=== PATIENT | male | born 1940 | race Caucasian/White ===

== ENCOUNTER 2021-07-18 14:40 | Inpatient (IN) | payer MEDICARE ==
[~2021-07-18] VITALS: Ht 165.1 cm; Wt 111.1 kg
[2021-07-18 17:38] LABS: BASOPHILS % 0.6 % (0.0-2.0); EOSINOPHILS % 5.1 % (0.0-5.0); HEMATOCRIT. 36.8 % (42.0-52.0); HEMOGLOBIN. 12.1 g/dL (14.0-18.0); LYMPHOCYTES % 21.6 % (20.0-50.0); MEAN CORPUSCULAR HEMOGLOBIN 30.4 pg (28.0-32.0); MEAN CORPUSCULAR VOLUME 92.1 fL (80.0-94.0); MONOCYTES % 9.4 % (2.0-8.0); NEUTROPHILS % 63.3 % (40.0-76.0); PLATELET 145 x1000/uL (130-400); RED BLOOD CELL COUNT 3.99 mill/uL (4.7-6.1); RED CELL DISTRIBUTION WIDTH 12.9 % (11.6-14.6)
[2021-07-18 17:43] LABS: CHLORIDE 106 mEq/L (98-107)
[2021-07-19 03:00] VITALS: BP 119/44
[2021-07-19] MEDS ORDERED: DEXTROSE 50% WATER 50ML SYRINGE IV PRN (05:15)
[2021-07-19] MEDS: BLOOD SUGAR DIAGNOSTIC STRIP TEST SCH ×4 (07:20→21:12)
[2021-07-19] MEDS: INSULIN LISPRO 100 UNITS/ML SUBCUT SCH ×4 (07:50→21:12)
[2021-07-19 08:00] VITALS: BP 130/60
[2021-07-19] MEDS: ASPIRIN 81MG TABLET PO SCH (08:45)
[2021-07-19] MEDS: PANTOPRAZOLE 40MG DR TABLET PO SCH (08:46)
[2021-07-19 10:01] LABS: HEMATOCRIT 37.9 % (42.0-52.0); HEMOGLOBIN 12.3 g/dL (14.0-18.0); MEAN CORPUSCULAR VOLUME 92.1 fL (80.0-94.0); PLATELET 157 x1000/uL (130-400); RED BLOOD CELL COUNT 4.11 mill/uL (4.7-6.1); RED CELL DISTRIBUTION WIDTH 13.2 % (11.6-14.6)
[2021-07-19 10:17] LABS: CHLORIDE 103 mEq/L (98-107)
[2021-07-19 10:27] LABS: HDL CHOLESTEROL 57 mg/dL (40-59); LDL CHOLESTEROL 65 mg/dL (5-100)
[2021-07-19 12:00] VITALS: BP 136/78
[2021-07-19] MEDS ORDERED: LIDOCAINE HCL/PF 1% 2ML VIAL ONE (12:21)
[2021-07-19] MEDS ORDERED: CEFTRIAXONE 1 G PREMIX 50 ML IV SCH (12:30)
[2021-07-19] MEDS ORDERED: METHYLPREDNISOLONE SOD SUCC 125 MG/2 ML VIAL IV NR (12:45)
[2021-07-19] MEDS ORDERED: GABA300S PO (12:53)
[2021-07-19 12:56] LABS: BG BASE EXCESS 4.6 mmol/L (-2.0-2.0); BG DEOXYHEMOGLOBIN 9.6 % (0.0-5.0); BG FRACTION INSPIRED OXYGEN 21; BG HCO3 ACT 31.6 mmol/L (22.0-26.0); BG METHEMOGLOBIN 0.3 % (0.0-1.5); BG OXYGEN SATURATION 90.3 % (92.0-98.5); BG OXYHEMOGLOBIN 89.1 % (94.0-97.0); BG PH 7.354 (7.350-7.450); BG PO2 55.7 mmHg (75.0-100.0); BG SAMPLE SITE RIGHT RADIAL; BG TOTAL HEMOGLOBIN 12.8 g/dL (12.0-18.0); BG VENT MODE ROOM AIR
[2021-07-19] MEDS ORDERED: ALFU10TA9 PO (12:56)
[2021-07-19] MEDS ORDERED: SIMV10TA97 PO (12:57)
[2021-07-19] MEDS ORDERED: GLIP10TA10 PO (12:58)
[2021-07-19] MEDS ORDERED: BENA10TA74 PO (12:58)
[2021-07-19] MEDS ORDERED: METF-414 PO (12:59)
[2021-07-19] MEDS ORDERED: LEVO125T8 PO (13:00)
[2021-07-19] MEDS: CEFTRIAXONE 1,000 MG in DEXTROSE 5% WATER 50 ML IV SCH (14:40)
[2021-07-19] MEDS: FUROSEMIDE 40MG/4ML VIAL IVP SCH (15:21)
[2021-07-19] MEDS: AZITHROMYCIN 500 MG in DEXT 5% WATER 250 ML IV SCH (15:21)
[2021-07-19 16:00] VITALS: BP 129/65
[2021-07-19] MEDS: METFORMIN HCL 500MG TABLET PO SCH (17:15)
[2021-07-19] MEDS: BENAZEPRIL 10MG TABLET PO SCH (17:17)
[2021-07-19] MEDS: GLIPIZIDE 10MG TABLET PO SCH (17:20)
[2021-07-19 20:00] VITALS: BP 138/57
[2021-07-19] MEDS ORDERED: ATORVASTATIN CALCIUM 20MG TABLET PO SCH (21:00)
[2021-07-19] MEDS: ATORVASTATIN CALCIUM 20MG TABLET PO SCH (21:12)
[2021-07-19] MEDS: METHYLPREDNISOLONE SOD SUCC 40 MG/ML VIAL IV SCH (21:17)
[2021-07-19] MEDS ORDERED: ONDANSETRON HCL 4MG/2ML INJ IV PRN (22:30)
[2021-07-19] MEDS: GUAIFENESIN/CODEINE 200-20MG/10ML UDC PO PRN (23:57)
[2021-07-20] VITALS (7 sets, daily range): BP systolic 99–133; BP diastolic 43–65
[2021-07-20] MEDS: IPRATROPIUM/ALBUTEROL 0.5-3(2.5)MG/3ML NEB HHN SCH ×6 (00:16→20:20)
[2021-07-20] MEDS: LEVOTHYROXINE SODIUM 125MCG TABLET PO SCH (06:27)
[2021-07-20] MEDS: METHYLPREDNISOLONE SOD SUCC 40 MG/ML VIAL IV SCH ×2 (06:27→14:42)
[2021-07-20] MEDS: GLIPIZIDE 10MG TABLET PO SCH ×2 (06:27→17:56)
[2021-07-20 06:33] LABS: HEMATOCRIT. 36.8 % (42.0-52.0); HEMOGLOBIN. 12.3 g/dL (14.0-18.0); LYMPHOCYTES % 8.1 % (20.0-50.0); MEAN CORPUSCULAR HEMOGLOBIN 30.7 pg (28.0-32.0); MEAN CORPUSCULAR VOLUME 91.8 fL (80.0-94.0); MEAN PLATELET VOLUME 8.8 fl (7.4-10.4); MONOCYTES % 2.1 % (2.0-8.0); NEUTROPHILS % 89.8 % (40.0-76.0); PLATELET 161 x1000/uL (130-400); RED BLOOD CELL COUNT 4.01 mill/uL (4.7-6.1); RED CELL DISTRIBUTION WIDTH 12.7 % (11.6-14.6)
[2021-07-20] MEDS: BLOOD SUGAR DIAGNOSTIC STRIP TEST SCH ×4 (06:38→21:05)
[2021-07-20] MEDS: INSULIN LISPRO 100 UNITS/ML SUBCUT SCH ×4 (07:06→21:06)
[2021-07-20] MEDS: FUROSEMIDE 40MG/4ML VIAL IVP SCH (10:59)
[2021-07-20] MEDS: BENAZEPRIL 10MG TABLET PO SCH (11:00)
[2021-07-20] MEDS: PANTOPRAZOLE 40MG DR TABLET PO SCH (11:00)
[2021-07-20] MEDS: GABAPENTIN 300MG CAPSULE PO SCH (11:00)
[2021-07-20] MEDS: ASPIRIN 81MG TABLET PO SCH (11:01)
[2021-07-20] MEDS: AZITHROMYCIN 500 MG in DEXT 5% WATER 250 ML IV SCH (11:01)
[2021-07-20] MEDS: METFORMIN HCL 500MG TABLET PO SCH ×2 (11:01→17:56)
[2021-07-20] MEDS: CEFTRIAXONE 1,000 MG in DEXTROSE 5% WATER 50 ML IV SCH (14:43)
[2021-07-20] MEDS ORDERED: FLUT1BLS INH (15:28)
[2021-07-20] MEDS ORDERED: FURO-151 MT (15:28)
[2021-07-20] MEDS ORDERED: AZIT250T12 MT (15:28)
[2021-07-20] MEDS ORDERED: MED4 MT (15:28)
[2021-07-20] MEDS ORDERED: ALBU6.7H9 INH (15:28)
[2021-07-20] MEDS ORDERED: INSULIN LISPRO 100 UNITS/ML SUBCUT NR (18:45)
[2021-07-20] MEDS ORDERED: DEXTROSE 50% WATER 50ML SYRINGE IV PRN (19:00)
[2021-07-20 20:13] LABS: BG BASE EXCESS -0.3 mmol/L (-2.0-2.0); BG DEOXYHEMOGLOBIN 13.7 % (0.0-5.0); BG FRACTION INSPIRED OXYGEN 21; BG HCO3 ACT 27.8 mmol/L (22.0-26.0); BG OXYGEN SATURATION 86.2 % (92.0-98.5); BG OXYHEMOGLOBIN 85.3 % (94.0-97.0); BG PO2 51.2 mmHg (75.0-100.0); BG SAMPLE SITE RIGHT RADIAL; BG TOTAL HEMOGLOBIN 12.6 g/dL (12.0-18.0); BG VENT MODE ROOM AIR
[2021-07-20] MEDS: ATORVASTATIN CALCIUM 20MG TABLET PO SCH (21:06)
[2021-07-20] MEDS: INSULIN GLARGINE 100 UNITS/ML SUBCUT SCH (21:07)
[2021-07-21] MEDS: IPRATROPIUM/ALBUTEROL 0.5-3(2.5)MG/3ML NEB HHN SCH ×7 (00:51→21:04)
[2021-07-21 04:00] VITALS: BP 96/43
[2021-07-21] MEDS: BLOOD SUGAR DIAGNOSTIC STRIP TEST SCH ×4 (06:21→21:04)
[2021-07-21] MEDS: PANTOPRAZOLE 40MG DR TABLET PO SCH (06:23)
[2021-07-21] MEDS: GLIPIZIDE 10MG TABLET PO SCH ×2 (06:23→17:01)
[2021-07-21] MEDS: LEVOTHYROXINE SODIUM 125MCG TABLET PO SCH (06:23)
[2021-07-21 07:52] LABS: CLARITY URINE CLEAR (CLEAR); COLOR URINE YELLOW (YELLOW); KETONES URINE NEGATIVE (NEGATIVE); LEUKOCYTE ESTERASE URINE TRACE (NEGATIVE); NITRITE URINE POSITIVE (NEGATIVE); OCCULT BLOOD URINE 2+ (NEGATIVE); PROTEIN URINE NEGATIVE (NEGATIVE); SPECIFIC GRAVITY URINE 1.012 (1.005-1.030); UROBILINOGEN URINE 0.2 E.U./dL (0.2-1.0)
[2021-07-21 08:00] VITALS: BP 143/73
[2021-07-21 08:15] LABS: *AMPHETAMINES SCREEN URINE NEGATIVE (NEGATIVE); *BARBITURATES SCREEN URINE NEGATIVE (NEGATIVE); *BENZODIAZEPINES SCREEN URINE NEGATIVE (NEGATIVE); *COCAINE SCREEN URINE NEGATIVE (NEGATIVE); CANNABINOID URINE SCREEN NEGATIVE (NEGATIVE); METHADONE URINE SCREEN NEGATIVE (NEGATIVE); OPIATES URINE SCREEN PRESUMTIVE POSITIVE (NEGATIVE); PHENCYCLIDINE URINE SCREEN NEGATIVE (NEGATIVE)
[2021-07-21] MEDS: INSULIN LISPRO 100 UNITS/ML SUBCUT SCH ×4 (08:38→21:10)
[2021-07-21] MEDS: AZITHROMYCIN 500 MG in DEXT 5% WATER 250 ML IV SCH (08:39)
[2021-07-21] MEDS: FUROSEMIDE 40MG/4ML VIAL IVP SCH (08:39)
[2021-07-21] MEDS: METHYLPREDNISOLONE SOD SUCC 40 MG/ML VIAL IV SCH ×2 (08:40→17:40)
[2021-07-21] MEDS: BENAZEPRIL 10MG TABLET PO SCH (08:52)
[2021-07-21] MEDS: GABAPENTIN 300MG CAPSULE PO SCH (08:52)
[2021-07-21] MEDS: METFORMIN HCL 500MG TABLET PO SCH ×2 (09:16→17:06)
[2021-07-21] MEDS: ASPIRIN 81MG TABLET PO SCH (09:17)
[2021-07-21 12:00] VITALS: BP 123/53
[2021-07-21] MEDS ORDERED: INSU100I24 SQ (13:01)
[2021-07-21] MEDS: CEFTRIAXONE 1,000 MG in DEXTROSE 5% WATER 50 ML IV SCH (14:47)
[2021-07-21 16:00] VITALS: BP 132/71
[2021-07-21 20:00] VITALS: BP 114/44
[2021-07-21] MEDS: ATORVASTATIN CALCIUM 20MG TABLET PO SCH (21:04)
[2021-07-21] MEDS: INSULIN GLARGINE 100 UNITS/ML SUBCUT SCH (21:10)
[2021-07-22] VITALS: BP 127/51
[2021-07-22] MEDS: IPRATROPIUM/ALBUTEROL 0.5-3(2.5)MG/3ML NEB HHN SCH ×6 (00:51→21:04)
[2021-07-22 04:00] VITALS: BP 122/58
[2021-07-22] MEDS: LEVOTHYROXINE SODIUM 125MCG TABLET PO SCH (05:58)
[2021-07-22] MEDS: BLOOD SUGAR DIAGNOSTIC STRIP TEST SCH ×4 (05:58→21:43)
[2021-07-22] MEDS: PANTOPRAZOLE 40MG DR TABLET PO SCH (05:58)
[2021-07-22] MEDS: GLIPIZIDE 10MG TABLET PO SCH ×2 (05:58→18:09)
[2021-07-22 07:47] VITALS: BP 133/50
[2021-07-22] MEDS: FUROSEMIDE 40MG/4ML VIAL IVP SCH (09:12)
[2021-07-22] MEDS: GABAPENTIN 300MG CAPSULE PO SCH (09:12)
[2021-07-22] MEDS: METHYLPREDNISOLONE SOD SUCC 40 MG/ML VIAL IV SCH ×2 (09:12→18:09)
[2021-07-22] MEDS: ASPIRIN 81MG TABLET PO SCH (09:13)
[2021-07-22] MEDS: METFORMIN HCL 500MG TABLET PO SCH ×2 (09:13→18:09)
[2021-07-22] MEDS: AZITHROMYCIN 500 MG in DEXT 5% WATER 250 ML IV SCH (09:13)
[2021-07-22] MEDS: BENAZEPRIL 10MG TABLET PO SCH (09:13)
[2021-07-22] MEDS: INSULIN LISPRO 100 UNITS/ML SUBCUT SCH ×4 (09:15→21:46)
[2021-07-22 12:00] VITALS: BP 128/63
[2021-07-22 13:24] LABS: HEMATOCRIT. 38.5 % (42.0-52.0); HEMOGLOBIN. 12.5 g/dL (14.0-18.0); MEAN CORPUSCULAR HEMOGLOBIN 29.9 pg (28.0-32.0); MEAN CORPUSCULAR VOLUME 91.8 fL (80.0-94.0); MEAN PLATELET VOLUME 7.7 fl (7.4-10.4); PLATELET 198 x1000/uL (130-400); RED BLOOD CELL COUNT 4.19 mill/uL (4.7-6.1); RED CELL DISTRIBUTION WIDTH 12.8 % (11.6-14.6)
[2021-07-22] MEDS: CEFTRIAXONE 1,000 MG in DEXTROSE 5% WATER 50 ML IV SCH (15:13)
[2021-07-22] MEDS: FUROSEMIDE 40MG TABLET PO SCH (15:16)
[2021-07-22 16:00] VITALS: BP 136/72
[2021-07-22 17:48] LABS: PLATELET ESTIMATE NORMAL
[2021-07-22] MEDS: GUAIFENESIN/CODEINE 200-20MG/10ML UDC PO PRN (18:09)
[2021-07-22 20:00] VITALS: BP 108/72
[2021-07-22] MEDS: ATORVASTATIN CALCIUM 20MG TABLET PO SCH (21:43)
[2021-07-22] MEDS: INSULIN GLARGINE 100 UNITS/ML SUBCUT SCH (21:47)
[2021-07-23] VITALS: BP 130/63
[2021-07-23] MEDS: IPRATROPIUM/ALBUTEROL 0.5-3(2.5)MG/3ML NEB HHN SCH ×5 (00:58→23:44)
[2021-07-23 04:00] VITALS: BP 122/58
[2021-07-23] MEDS: PANTOPRAZOLE 40MG DR TABLET PO SCH (06:48)
[2021-07-23] MEDS: BLOOD SUGAR DIAGNOSTIC STRIP TEST SCH ×4 (06:48→21:00)
[2021-07-23] MEDS: LEVOTHYROXINE SODIUM 125MCG TABLET PO SCH (06:48)
[2021-07-23] MEDS: GLIPIZIDE 10MG TABLET PO SCH ×2 (06:48→17:04)
[2021-07-23 08:00] VITALS: BP 141/65
[2021-07-23] MEDS: BENAZEPRIL 10MG TABLET PO SCH (08:25)
[2021-07-23] MEDS: METFORMIN HCL 500MG TABLET PO SCH ×2 (08:25→17:04)
[2021-07-23] MEDS: GABAPENTIN 300MG CAPSULE PO SCH (08:26)
[2021-07-23] MEDS: ASPIRIN 81MG TABLET PO SCH (08:26)
[2021-07-23] MEDS: INSULIN LISPRO 100 UNITS/ML SUBCUT SCH ×4 (08:27→22:03)
[2021-07-23] MEDS: FUROSEMIDE 40MG TABLET PO SCH (08:29)
[2021-07-23] MEDS ORDERED: AZITHROMYCIN 500 MG TABLET PO SCH (09:00)
[2021-07-23] MEDS: METHYLPREDNISOLONE SOD SUCC 40 MG/ML VIAL IV SCH ×2 (09:19→16:52)
[2021-07-23] MEDS: LACTULOSE 20G/30ML UDC PO NR ×2 (11:05→13:38)
[2021-07-23 12:00] VITALS: BP 140/69
[2021-07-23 16:00] VITALS: BP 136/69
[2021-07-23 20:00] VITALS: BP 125/70
[2021-07-23] MEDS: ATORVASTATIN CALCIUM 20MG TABLET PO SCH (22:02)
[2021-07-23] MEDS: INSULIN GLARGINE 100 UNITS/ML SUBCUT SCH (22:04)
[2021-07-24] VITALS: BP 140/65
[2021-07-24 03:42] VITALS: BP 132/44
[2021-07-24] MEDS: IPRATROPIUM/ALBUTEROL 0.5-3(2.5)MG/3ML NEB HHN SCH ×4 (04:30→16:50)
[2021-07-24] MEDS: LEVOTHYROXINE SODIUM 125MCG TABLET PO SCH (06:28)
[2021-07-24] MEDS: BLOOD SUGAR DIAGNOSTIC STRIP TEST SCH ×2 (06:28→12:20)
[2021-07-24] MEDS: PANTOPRAZOLE 40MG DR TABLET PO SCH (06:28)
[2021-07-24] MEDS: GLIPIZIDE 10MG TABLET PO SCH (06:28)
[2021-07-24 08:00] VITALS: BP 131/50
[2021-07-24] MEDS: FUROSEMIDE 40MG TABLET PO SCH (11:05)
[2021-07-24] MEDS: METFORMIN HCL 500MG TABLET PO SCH (11:05)
[2021-07-24] MEDS: METHYLPREDNISOLONE SOD SUCC 40 MG/ML VIAL IV SCH (11:06)
[2021-07-24] MEDS: GABAPENTIN 300MG CAPSULE PO SCH (11:06)
[2021-07-24] MEDS: ASPIRIN 81MG TABLET PO SCH (11:06)
[2021-07-24] MEDS: BENAZEPRIL 10MG TABLET PO SCH (11:06)
[2021-07-24] MEDS: INSULIN LISPRO 100 UNITS/ML SUBCUT SCH ×2 (11:08→12:50)
[2021-07-24 12:00] VITALS: BP 128/52
[2021-07-24 16:00] VITALS: BP 130/51
[2021-07-24 16:36] VITALS: BP 128/75
== END 2021-07-24 18:10 | disposition home or self-care (01) | DRG 196 ==
LOC: ER 14:40 → MICUSO 22:41 → 6WST 07-19 02:29
PROVIDERS: ADMIT Internal Medicine; ATTEND Internal Medicine
DX: J84.9 Interstitial pulmonary disease, unspecified (principal); J96.01 Acute respiratory failure with hypoxia; J96.92 Respiratory failure, unspecified with hypercapnia; I50.30 Unspecified diastolic (congestive) heart failure; Z68.41 Body mass index [BMI] 40.0-44.9, adult; E78.00 Pure hypercholesterolemia, unspecified; Z20.822 Contact with and (suspected) exposure to COVID-19; E78.5 Hyperlipidemia, unspecified; J84.10 Pulmonary fibrosis, unspecified; Z96.651 Presence of right artificial knee joint; E11.65 Type 2 diabetes mellitus with hyperglycemia; I11.0 Hypertensive heart disease with heart failure; I27.20 Pulmonary hypertension, unspecified; E03.9 Hypothyroidism, unspecified; G47.33 Obstructive sleep apnea (adult) (pediatric); E66.9 Obesity, unspecified; Z79.51 Long term (current) use of inhaled steroids; Z79.84 Long term (current) use of oral hypoglycemic drugs; Z79.899 Other long term (current) drug therapy
CPT/HCPCS: 36415; 36600; 71045; 71250; 80048; 80053; 80061; 80305; 81003; 82375; 82805; 82962; 83036; 83880; 84484; 85025; 85027; 87426; 93005; 93306; 94640; 94660; 99285; C9803; J0456; J0696; J1815; J1940; J2405; J2920; J2930; J3490; J7060